=== PATIENT | male | born 1940 | race Caucasian/White ===

== ENCOUNTER 2020-02-16 14:02 | Observation (INO) ==
[2020-02-16] MEDS ORDERED: ASPIRIN 325 MG TABLET PO STA (14:34)
[2020-02-16] MEDS ORDERED: ENOXAPARIN 100 MG/ML SYRINGE SUBCUT STA (14:34)
[2020-02-16 15:00] LABS: Basophils # 0.1 10*3/uL (0.0-0.2); Basophils % 0.9 % (0.0-0.8); Eosinophils # 0.1 10*3/uL (0.0-0.87); Eosinophils % 0.8 % (0.00-10.9); Hematocrit 41.4 VOL% (42.0-52.0); Hemoglobin 13.7 GM/DL (14.0-18.0); Immature Granulocytes % 0.9 %; Immature Granulocytes Absolute 0.11 #; Lymphocytes # 1.4 10*3/uL (1.4-4.0); Lymphocytes % 11.4 % (21.2-54.2); Mean Corpuscular HGB Conc 33.1 GM/DL (32-36); Mean Platelet Volume 11.8 FL (9.6-12.0); Monocytes % 9.1 % (1.7-12.7); Neutrophils % 76.9 % (38.7-73.9); Platelet Count 141 T/CUMM (130-400); Red Blood Count 4.65 MC/CUMM (3.8-5.5); Red Cell Distribution Width 15.6 % (9.3-17.3); White Blood Count 12.2 T/CUMM (4-12)
[2020-02-16 15:07] LABS: PT Patient Result 10.9 SECS (9.8-11.9)
[2020-02-16 15:16] LABS: Albumin 3.7 G/DL (3.4-5.0); Bilirubin,Total 1.4 MG/DL (0.2-1.0); Calcium 8.4 MG/DL (8.5-10.1); Osmolality,Calculated 281.3 MOS/KG (273-304); Total Protein 6.6 G/DL (6.4-8.3)
[2020-02-16] MEDS ORDERED: cefTRIAXone 1,000 MG in SODIUM CHLORIDE 0.9% 100 ML IV STA (16:13)
[2020-02-16] MEDS ORDERED: NITROGLYCERIN SL 0.4 MG TABLET SL PRN (16:27)
[2020-02-16] MEDS ORDERED: ALBUTEROL 2.5 MG/3 ML NEB RESP TX PRN (16:27)
[2020-02-16] MEDS ORDERED: ALBUTEROL/IPRATROPIUM 3 ML NEB RESP TX PRN (16:27)
[2020-02-16 18:15] LABS: Risk Ratio 2.98; VLDL CHOLESTEROL 23.2 MG/DL
[2020-02-16] MEDS: BUDESONIDE/FORMOTEROL 160-4.5 INHALER 6 GM INH SCH (20:49)
[2020-02-16] MEDS ORDERED: clonazePAM 0.5 MG TABLET PO SCH (21:00)
[2020-02-16] MEDS ORDERED: METHOCARBAMOL 500 MG TABLET PO SCH (21:00)
[2020-02-17] MEDS ORDERED: ENOXAPARIN 80 MG/0.8 ML SYRINGE SUBCUT SCH (03:00)
[2020-02-17 06:33] LABS: Basophils # 0.1 10*3/uL (0.0-0.2); Eosinophils # 0.1 10*3/uL (0.0-0.87); Eosinophils % 0.7 % (0.00-10.9); Hematocrit 45.2 VOL% (42.0-52.0); Hemoglobin 15.1 GM/DL (14.0-18.0); Immature Granulocytes % 0.8 %; Immature Granulocytes Absolute 0.08 #; Lymphocytes # 1.2 10*3/uL (1.4-4.0); Lymphocytes % 11.7 % (21.2-54.2); Mean Corpuscular HGB Conc 33.4 GM/DL (32-36); Mean Corpuscular Volume 87.4 FL (87-102); Mean Platelet Volume 12.4 FL (9.6-12.0); Monocytes % 10.6 % (1.7-12.7); Neutrophils % 75.2 % (38.7-73.9); Platelet Count 138 T/CUMM (130-400); Red Blood Count 5.17 MC/CUMM (3.8-5.5); Red Cell Distribution Width 15.5 % (9.3-17.3); White Blood Count 10.6 T/CUMM (4-12)
[2020-02-17 07:12] LABS: Albumin 3.7 G/DL (3.4-5.0); Bilirubin,Total 2.8 MG/DL (0.2-1.0); Calcium 9.3 MG/DL (8.5-10.1); Osmolality,Calculated 278.4 MOS/KG (273-304); Total Protein 7.2 G/DL (6.4-8.3)
[2020-02-17 08:20] VITALS: BP 141/53
[2020-02-17] MEDS: BUDESONIDE/FORMOTEROL 160-4.5 INHALER 6 GM INH SCH (08:54)
[2020-02-17] MEDS ORDERED: RIVASTIGMINE 9.5 MG/24 HR PATCH TRANSDERM SCH (09:00)
[2020-02-17] MEDS ORDERED: ROFLUMILAST 500 MCG TABLET PO SCH (09:00)
[2020-02-17] MEDS ORDERED: MEMANTINE 10 MG TABLET PO SCH (09:00)
[2020-02-17] MEDS ORDERED: FOLIC ACID 1 MG TABLET PO SCH (09:00)
[2020-02-17] MEDS ORDERED: ASPIRIN EC 325 MG TABLET PO SCH (09:00)
[2020-02-17] MEDS ORDERED: MONTELUKAST 10 MG TABLET PO SCH (09:00)
[2020-02-17] MEDS ORDERED: ISOSORBIDE MONONITRATE 30 MG TABLET PO SCH (09:00)
[2020-02-17] MEDS ORDERED: FEXOFENADINE 180 MG TABLET PO SCH (09:00)
[2020-02-17] MEDS ORDERED: PANTOPRAZOLE 40 MG TABLET PO SCH (12:00)
[2020-02-17] MEDS ORDERED: METOPROLOL SUCCINATE XL 50 MG TABLET PO SCH (12:00)
[2020-02-18] MEDS ORDERED: ATORVASTATIN 10 MG TABLET PO SCH (12:00)
== END 2020-02-17 12:08 | disposition home or self-care (01) ==
LOC: N.EDINP 14:02 → N.ED 14:02 → N.TELEN 17:35
PROVIDERS: ADMIT Internal Medicine; ATTEND Internal Medicine